=== PATIENT | female | born 1940 | race Caucasian/White ===

== ENCOUNTER 2019-12-03 22:02 | Inpatient (IN) ==
[2019-12-03] MEDS ORDERED: DILAUDID IV ONE (22:39)
[2019-12-03] MEDS ORDERED: ZOFRAN IV ONE (22:39)
[2019-12-03 23:05] LABS: ALBUMIN 4.2 g/dL (3.5-5.0); CALCIUM 9.2 mg/dL (8.8-10.2); CREATININE 1.2 mg/dL (0.5-0.9); TOTAL BILIRUBIN 0.6 mg/dL (0.20-1.00); TOTAL PROTEIN 7.3 g/dL (6.3-8.3)
[2019-12-03 23:10] LABS: MAGNESIUM 1.7 mg/dL (1.5-2.7)
[2019-12-03 23:25] LABS: BASO# 0.09 X1000 (0.0-0.2); BASO% 0.8 % (0.0-0.8); EOS# 0.09 X1000 (0.0-0.7); EOS% 0.8 % (0.0-10.0); HEMATOCRIT 38.8 % (37.0-47.0); HEMOGLOBIN 12.4 g/dL (12.0-16.0); IMM GRAN# 0.04 X1000 (0.0-0.04); IMM GRAN% 0.3 % (0.0-0.5); LYMPH% 5.9 % (20.5-51.1); MCH 27.1 PG (27-31); MCV 84.9 FL (81-99); MONO# 1.04 X1000 (0.11-0.59); MONO% 8.8 % (1.7-9.3); MPV 10.2 FL (7.4-10.4); NEUT# 9.92 X1000 (1.4-6.5); NEUT% 83.4 % (42.2-75.2); PLT 315 X1000 (130-400); RBC 4.57 XMIL (4.2-5.4); RDW 16.4 % (11.5-14.5); WBC 11.88 X1000 (4.8-10.8)
--- NOTE | 2019-12-04 00:34 | EKG Report ---
Test Performed on : 12/03/2019 10:38:43 PM Test Reason : CP Blood Pressure : / mmHG Vent. Rate : 100 BPM Atrial Rate : 100 BPM P-R Int : 172 ms QRS Dur : 096 ms QT Int : 334 ms P-R-T Axes : 057 -32 057 degrees QTc Int : 430 ms Normal sinus rhythm. Possible Left atrial enlargement Left axis deviation Incomplete right bundle branch block Left ventricular hypertrophy Cannot rule out Septal infarct (cited on or before 18-JUN-2019) Abnormal ECG When compared with ECG of 18-JUN-2019 09:30, No significant change was found Unconfirmed Result
[2019-12-04] MEDS ORDERED: DILAUDID IV ONE (01:53)
[2019-12-04] MEDS ORDERED: ROCEPHIN 1 GM in NS 50 ML IV ONE (01:53)
[2019-12-04] MEDS ORDERED: PHENERGAN IM ONE (03:22)
[2019-12-04] MEDS ORDERED: TORADOL IV ONE (03:23)
[2019-12-04] MEDS ORDERED: ZOFRAN IV PRN ×2 (06:43→07:29)
[2019-12-04] MEDS ORDERED: DILAUDID IM PRN (06:43)
[2019-12-04] MEDS ORDERED: TYLENOL PO PRN ×2 (06:43→07:29)
--- NOTE | 2019-12-04 07:42 | Diag Imaging Result Doc PS360 ---
EXAM: CT THORAX/ABD/PELVIS W/O CON - 12/03/2019 HISTORY: PAIN LEFT CHEST ABD SUPRAPUBIC, HEPATOCELLULAR CA TECHNIQUE: CT thorax and abdomen/pelvis without contrast. No contrast administered per request of the referring provider. COMPARISON: 06/18/2019 CT abdomen/pelvis with intravenous contrast FINDINGS: CT thorax: There are COPD changes. There are right lower lobe calcified granulomas and calcified right hilar and mediastinal lymph nodes from old granulomatous disease. There is ill-defined atelectasis or infiltrates at the bilateral lower lobes and inferior left lingula. There is possible tiny left pleural effusion. There is no evidence of pneumothorax. There are no substantially enlarged noncalcified mediastinal lymph nodes identified. CT abdomen/pelvis: There is some limitation of detail without administered contrast. The liver has lobulated contours which can be seen with chronic hepatocellular disease/cirrhosis. The low-density lesion in the right lobe of the liver which was seen on the prior exam is difficult to evaluate due to the lack of intravenous contrast on this exam. There is a 2.5 x 2.3 cm calcified lesion at the right lobe of the liver which has decreased in size. There are smaller calcified lesions near the larger lesion, which measure 1.3 cm and 1 cm, respectively. There are splenic granulomas from old granulosis disease. There is a new 3.7 cm mass at the inferior margin of the spleen which may arise in the peritoneum adjacent to the spleen and abutting or invading the spleen. There has been development of multiple peritoneal masses at the anterior lower abdomen and pelvis. The largest of these measurements 6 x 7.3 cm. The second largest measures 5.6 x 7.3 cm. These are compatible with metastases. There is also a new mass at the left posterior pelvis which measures 6.6 x 3.5 cm and may be peritoneal or retroperitoneal in location. There is small amount of ascites. There are no acute abnormalities of the adrenal glands, pancreas, or kidneys identified. The distal aorta is mildly ectatic at 2.5 cm. There are atherosclerotic calcifications noted. There are lumbar spine degenerative changes noted. There is no evidence of bowel obstruction. There is colonic diverticulosis which is most extensive at the sigmoid. There is no evidence of diverticulitis. There is no free air or abscess identified. IMPRESSION: CT thorax: Hazy atelectasis or infiltrates at lung bases. Possible tiny left pleural effusion. No other discrete metastatic disease in the thorax. CT abdomen/pelvis: Development of multiple masses in lower abdomen and pelvis, most of which are peritoneal in location. These are consistent with metastases. Small amount ascites. No bowel obstruction. The self contained behavior unit teacher radiologist provided preliminary results at 12:53 AM on 12/04/2019. This exam was performed using automated exposure control, adjustment of mA or kV according to patient size, and/or use of iterative reconstruction technique. Electronically signed by Jean CarlosYoutuoabel 12/04/2019 7:40 AM
[2019-12-04] MEDS: ZITHROMAX PO SCH (09:15)
[2019-12-04] MEDS: MORPHINE IR PO PRN ×2 (12:47→21:59)
--- NOTE | 2019-12-04 13:36 | HISTORY AND PHYSICAL ---
CHIEF COMPLAINT: Abdominal pain. HISTORY OF PRESENT ILLNESS: This is a 79-year-old female with a history of metastatic hepatocellular cancer. She presented to the emergency room complaining of pain that started under her left breast, went down through her left ribs and to her left lower quadrant suprapubic area. She rated this as a 10/10 pain at its worst. She did get relief with Dilaudid while in the emergency room. Ms. Alvarez is known to have hepatocellular cancer. She is followed by Dr. Lazar locally and at [facility]. She was evaluated at [facility], underwent a biopsy and had a repeat CT scan. I did discuss the patient with Dr. Lazar, and he stated that he met with the patient and her family in his office yesterday. He discussed CT scan from [facility], which revealed new metastatic lesions involving her spleen, as well as lower abdomen and pelvis areas. PAST MEDICAL HISTORY: 1. Metastatic hepatocellular cancer. 2. Diabetes mellitus. 3. Hypertension. PAST SURGICAL HISTORY: 1. Cholecystectomy. 2. Hysterectomy. 3. Tonsillectomy. 4. Liver ablation. SOCIAL HISTORY: She denies alcohol, tobacco, or illicit drug use. She is , lives with her . ALLERGIES: No known drug allergies. HOME MEDICATIONS: A list will be obtained by the nursing staff. We will review and restart as appropriate. REVIEW OF SYSTEMS: Discussed with the patient with pertinent positives stated in the HPI. She denied any syncope, dizziness, any chest pain or palpitations, any black or bloody vomitus or stools, any hematuria, dysuria, frequency, urgency. PHYSICAL EXAMINATION: GENERAL: This is a 79-year-old female, who is sitting on the side of the bed on the medical- surgical floor in no distress. VITAL SIGNS: Blood pressure is 168/65 with a heart rate of 81, respirations are 18, temperature is 97.8 degrees oral with O2 saturations 95%. HEENT: Pupils are equal, round, react to light. EOMS are intact. Sclerae are anicteric. Head is normocephalic, atraumatic. Mucous membranes are moist. NECK: Supple. Trachea midline. No JVD. CARDIOVASCULAR: Regular rate and rhythm. S1 and S2 are appreciated. She has no lower extremity edema. She denies any calf tenderness. Peripheral pulses palpable x4 extremities. PULMONARY: Breath sounds are clear with no increased work of breathing noted. Chest rises and falls symmetric with respiration. Chest wall is nontender to palpation. GASTROINTESTINAL: Abdomen is soft, nontender, nondistended with bowel sounds in all 4 quadrants. GENITOURINARY: No CVA or suprapubic tenderness. NEUROLOGIC: She is alert and oriented. LABS: WBC is 11.8 with hemoglobin 12.4, hematocrit 38.8, platelets of 315. Sodium 133, potassium 4, BUN 27, creatinine 1.2 with a glucose of 286. AST is 98, alkaline phosphatase 112. Blood cultures are pending. X-RAYS: CT of the abdomen and pelvis revealed hazy atelectasis or infiltrates at the lung bases. No discrete metastatic disease in the thorax. CT of the abdomen and pelvis revealed development of multiple masses in the lower abdomen and pelvis, most of which are peritoneal in location. These are consistent with metastasis. Small amount of ascites. No bowel obstruction. ASSESSMENT: 1. Metastatic hepatocellular cancer. 2. Abdominal pain, secondary to metastatic disease. 3. Nausea and vomiting. 4. Bilateral lower lobe pneumonia. 5. Diabetes mellitus. PLAN: 1. The patient has been admitted to the medical-surgical floor and placed on telemetry which will continue. 2. Diet as tolerated. 3. Oxygen as needed. 4. Continue azithromycin and Rocephin for antibiotic coverage and further antibiotics will be culture driven. 5. Incentive spirometer q. 4 hours. 6. We will identify her home medications and continue as appropriate. 7. We will start morphine IR 15 mg q. 6 hours p.r.n. pain. Will evaluate its effectiveness. 8. Start MiraLAX 17 g p.o. daily, along with her Senna [address] tabs [address] 9[address] her on pattern blood glucose with sliding scale insulin. 10. Chronic kidney disease. We will monitor labs and renal dose medications. Plan was discussed with Dr. Jacques. Further treatments pending hospital course. Dictated by MALOU Marques for Eber Jacques MD cc: MALOU Marques MD
[2019-12-04] MEDS: PERICOLACE PO SCH (21:42)
--- NOTE | 2019-12-04 22:03 | HISTORY AND PHYSICAL ---
ADDENDUM: Patient seen and examined by myself. Full note dictated and discussed with nurse practitioner. Patient presented to the hospital with abdominal pain and pain in her left breast and the lower left ribs as well as suprapubic abdomen. Does have a history of cancer, diabetes and hypertension. Notes that at times her pain is 10/10. We are going to admit her to the hospital with pain control. We will continue to follow her blood pressures. She was on a Nipride drip last night. Has improved off of that, although blood pressures have just recently gone back to 180. It also appears though she may have peritoneal masses from her previous cancer. We will continued to follow. cc: Eber Jacques MD
[2019-12-05] MEDS: ROCEPHIN 1 GM in NS 50 ML IV SCH (02:53)
[2019-12-05 04:36] LABS: HEMATOCRIT 38.4 % (37.0-47.0); HEMOGLOBIN 11.7 g/dL (12.0-16.0); MCH 26.5 PG (27-31); MCHC 30.5 g/dL (33-37); MCV 87.1 FL (81-99); MPV 10.3 FL (7.4-10.4); RBC 4.41 XMIL (4.2-5.4); RDW 16.5 % (11.5-14.5); WBC 8.58 X1000 (4.8-10.8)
[2019-12-05 04:45] LABS: ALBUMIN 3.7 g/dL (3.5-5.0); CREATININE 1.1 mg/dL (0.5-0.9); POTASSIUM 4.7 mmol/L (3.5-5.1); TOTAL BILIRUBIN 0.4 mg/dL (0.20-1.00); TOTAL PROTEIN 7.2 g/dL (6.3-8.3)
[2019-12-05] MEDS: PRILOSEC PO SCH (06:16)
[2019-12-05] MEDS: SYNTHROID PO SCH (06:16)
[2019-12-05] MEDS: MORPHINE IR PO PRN (06:16)
[2019-12-05] MEDS: ZANAFLEX PO SCH (09:27)
[2019-12-05] MEDS: ZITHROMAX PO SCH (09:27)
[2019-12-05] MEDS: CALTRATE 600 + D PO SCH (09:27)
[2019-12-05] MEDS: VITAMIN D PO SCH (09:27)
[2019-12-05] MEDS: ESTRACE PO SCH (09:28)
[2019-12-05] MEDS: MAG-OX PO SCH (09:28)
[2019-12-05] MEDS: VITAMIN B-12 SL SCH (09:28)
[2019-12-05] MEDS: MIRALAX PO SCH (09:28)
[2019-12-05] MEDS: PERICOLACE PO SCH ×2 (09:28→23:11)
[2019-12-05] MEDS: COZAAR PO SCH (09:28)
[2019-12-05] MEDS: MORPHINE IR PO SCH ×2 (12:30→18:31)
--- NOTE | 2019-12-05 23:25 | PROGRESS NOTE ---
DATE: 12/05/2019 SUBJECTIVE: The patient notes she is still having left upper quadrant pain. Medications help but do not completely alleviate pain. PHYSICAL EXAMINATION: Temperature 97.8, pulse 89, respiratory rate 18, BP 172/84.General: The patient is pleasant, currently in no respiratory distress. HEENT: Normocephalic. Neck: Supple. Cardiovascular: Regular rate, chest clear, nonlabored, no crackles. Abdomen: Soft, diffusely but minimally tender. Extremities: Moves all extremities. ASSESSMENT: 1. Metastatic hepatocellular cancer. 2. Abdominal pain secondary to metastatic disease. 3. Bilateral lower lobe pneumonia. 4. Diabetes. 5. Leukocytosis. 6. Hyponatremia. PLAN: Overall, the patient is stable. She is in no respiratory distress. White count is improved. Sodium is back to normal. She is having pain. We started her on morphine. Will follow today, if necessary will increase her pain medications. Unfortunately, the pain seems to be more due to her metastatic disease than to her current pneumonia. cc: Eber Jacques MD
[2019-12-06] MEDS: ROCEPHIN 1 GM in NS 50 ML IV SCH (00:19)
[2019-12-06] MEDS: MORPHINE IR PO SCH ×4 (00:19→17:18)
[2019-12-06] MEDS: SYNTHROID PO SCH (06:41)
[2019-12-06] MEDS: PRILOSEC PO SCH (06:41)
[2019-12-06] MEDS ORDERED: PHENERGAN PO PRN (07:50)
[2019-12-06] MEDS ORDERED: MOVANTIK PO ONE (09:00)
[2019-12-06] MEDS: CALTRATE 600 + D PO SCH (09:57)
[2019-12-06] MEDS: ZANAFLEX PO SCH (09:57)
[2019-12-06] MEDS: ZITHROMAX PO SCH (09:57)
[2019-12-06] MEDS: MIRALAX PO SCH (09:58)
[2019-12-06] MEDS: MAG-OX PO SCH (09:58)
[2019-12-06] MEDS: PERICOLACE PO SCH ×2 (09:58→22:00)
[2019-12-06] MEDS: VITAMIN B-12 SL SCH (09:58)
[2019-12-06] MEDS: VITAMIN D PO SCH (09:58)
[2019-12-06] MEDS: ESTRACE PO SCH (09:59)
[2019-12-06] MEDS: COZAAR PO SCH (10:00)
--- NOTE | 2019-12-06 12:33 | PROGRESS NOTE ---
DATE: 12/06/2019 SUBJECTIVE: Patient notes she has been constipated, still hurting. She is nauseated frequently. PHYSICAL EXAM: Vital signs: Temperature 98, pulse 103, respiratory 18, BP 119/65. Currently she is on 2 L oxygen to sat 94%, 95% on room air. HEENT: Normocephalic. Neck: Supple. Cardiovascular: Mild tachycardia. Chest: Clear, nonlabored. Abdomen: Soft, nondistended. ASSESSMENT: 1. Nausea. We will add Phenergan. 2. Constipation. We will add Movantik. 3. Hypoxia. We will continue to follow. 4. Acute pain secondary to metastases. 5. Metastatic hepatocellular cancer. 6. Diabetes. 7. Hypertension, stable. PLAN: Expect patient to be in the hospital for couple of days given her oxygen desaturations. cc: Eber Jacques MD
[2019-12-07] MEDS: ROCEPHIN 1 GM in NS 50 ML IV SCH (00:32)
[2019-12-07] MEDS: MORPHINE IR PO SCH ×2 (05:16→05:18)
[2019-12-07] MEDS: PRILOSEC PO SCH (05:19)
[2019-12-07] MEDS: SYNTHROID PO SCH (05:19)
[2019-12-07 07:28] LABS: URINE SOURCE CLEAN CATCH
[2019-12-07 08:26] LABS: BILIRUBIN URINE NEGATIVE (NEGATIVE); BLOOD URINE TRACE (NEGATIVE); COLOR YELLOW; GLUCOSE URINE NEGATIVE (NEGATIVE); KETONE URINE NEGATIVE (NEGATIVE); LEUKOCYTES URINE NEGATIVE (NEGATIVE); NITRITE URINE NEGATIVE (NEGATIVE); PROTEIN URINE 50 mg/dL (NEGATIVE); SP GRAVITY URINE 1.022; TURBIDITY URINE TURBID (CLEAR); UROBILINOGEN URINE NORMAL (NORMAL)
[2019-12-07 08:41] LABS: UR EPITHELIAL CELLS >10 /HPF (<10); URINE BACTERIA NEGATIVE /HPF; URINE RBC <10 /HPF (<10); URINE WBC <10 /HPF (<10)
[2019-12-07 08:45] LABS: URINE CASTS GRANULAR PRESENT; URINE CRYSTALS NONE SEEN; URINE SMALL ROUND CELLS NONE SEEN; URINE YEAST NONE SEEN
[2019-12-07] MEDS ORDERED: MORPHINE IR PO PRN ×2 (09:49→15:30)
[2019-12-07] MEDS: ZITHROMAX PO SCH (10:06)
[2019-12-07] MEDS: VITAMIN D PO SCH (10:07)
[2019-12-07] MEDS: COZAAR PO SCH (10:11)
[2019-12-07] MEDS: CALTRATE 600 + D PO SCH (10:11)
[2019-12-07] MEDS: ESTRACE PO SCH (10:12)
[2019-12-07] MEDS: ZANAFLEX PO SCH (10:13)
[2019-12-07] MEDS: MAG-OX PO SCH (10:13)
[2019-12-07] MEDS: PERICOLACE PO SCH ×2 (10:14→22:11)
[2019-12-07] MEDS: MIRALAX PO SCH (10:14)
[2019-12-07] MEDS: VITAMIN B-12 SL SCH (10:15)
--- NOTE | 2019-12-07 11:59 | Diag Imaging Result Doc PS360 ---
EXAM: CHEST-2 VIEWS 12/07/2019 HISTORY: hypoxia TECHNIQUE: Two views the chest COMMENT: The inspiration is suboptimal. There is a small amount of pleural fluid on both sides which was not the case on 06/18/2019. There is bibasilar atelectasis versus mild bronchopneumonia. IMPRESSION: Bilateral pleural effusions and basilar atelectasis. Electronically signed by Alexandre Bergeron 12/07/2019 11:57 AM
--- NOTE | 2019-12-07 11:59 | Diag Imaging Result Doc PS360 ---
EXAM: KUB ABDOMEN 12/07/2019 HISTORY: constipation TECHNIQUE: KUB COMMENT: There is stool throughout much of the colon. There is no evidence of small bowel dilatation gastric distention organomegaly or mass. IMPRESSION: Severe constipation. Electronically signed by Alexandre Bergeron 12/07/2019 11:56 AM
[2019-12-07] MEDS ORDERED: NS 1,000 ML IV ONE ×3 (14:53→16:14)
[2019-12-07] MEDS ORDERED: ROCEPHIN 1 GM in NS 50 ML IV SCH (15:30)
[2019-12-07] MEDS ORDERED: LEVOPHED 8 MG in D5 1/2 NS 250 ML IV PRN (16:34)
[2019-12-07] MEDS ORDERED: NON-FORMULARY MED PR ONE (19:00)
--- NOTE | 2019-12-07 20:45 | PROGRESS NOTE ---
DATE: 12/07/2019 SUBJECTIVE: Patient notes she is still having issues with constipation. She was having some difficulty urinating. We did place Thomas catheter. Still having diffuse abdominal pain. PHYSICAL: Temperature 97, pulse 104, respiratory 18, BP 120/60, saturation 92 on 3 L.HEENT: Normocephalic. Neck: Supple. CV: Regular rate. Chest: Clear. Abdomen: Soft, nondistended. Extremities: Moves all extremities. ASSESSMENT: 1. Nausea, vomiting. 2. Abdominal pain. 3. Metastatic hepatocellular cancer. 4. Diabetes. 5. Hypertension. 6. Hypoxia. PLAN: We are going to place Thomas catheter as she is having some urinary retention issues. She does have bilateral pneumonia. Will continue antibiotics, continue oxygen and will transfer to [facility] for hematology's input regarding her metastatic cancer. ADDENDUM: After Thomas was placed, patient's blood pressures dropped in the 70s and 80s systolic [*] bolus her and it improved. Will continue to follow. cc: Eber Jacques MD
[2019-12-08] MEDS: NS 1,000 ML IV SCH ×5 (01:28→18:10)
[2019-12-08] MEDS: SYNTHROID PO SCH (06:09)
[2019-12-08] MEDS: PRILOSEC PO SCH (06:09)
[2019-12-08] MEDS: MIRALAX PO SCH (08:02)
[2019-12-08] MEDS: MAG-OX PO SCH (08:02)
[2019-12-08] MEDS: ZANAFLEX PO SCH (08:02)
[2019-12-08] MEDS: CALTRATE 600 + D PO SCH (08:03)
[2019-12-08] MEDS: VITAMIN D PO SCH (08:03)
[2019-12-08] MEDS: PERICOLACE PO SCH ×2 (08:04→20:33)
[2019-12-08] MEDS: VITAMIN B-12 SL SCH (08:04)
[2019-12-08] MEDS: COZAAR PO SCH (08:04)
[2019-12-08] MEDS ORDERED: NS 1,000 ML IV ONE (09:45)
[2019-12-08] MEDS: ZITHROMAX PO SCH (10:21)
[2019-12-08] MEDS: ESTRACE PO SCH (10:21)
[2019-12-08] MEDS ORDERED: MORPHINE IR PO PRN (10:34)
[2019-12-08] MEDS ORDERED: TYLENOL PO PRN (10:37)
[2019-12-08] MEDS ORDERED: ZOFRAN IV PRN (10:40)
[2019-12-08] MEDS: ROCEPHIN 1 GM in NS 50 ML IV SCH (11:53)
[2019-12-08] MEDS: MORPHINE IR PO PRN ×3 (13:40→23:24)
--- NOTE | 2019-12-08 14:47 | PROGRESS NOTE ---
DATE: 12/08/2019 SUBJECTIVE: It looks like she had a couple bowel movements liquid brown, she does not want to eat because she does not want to vomit, she is complaining of abdominal pain. She is awake, she is alert, she is oriented. No family members at the bedside. OBJECTIVE: Vital Signs: Temperature 98.3, pulse 83, respiratory rate 13, blood pressure 125/50, oxygen saturation 93 on nasal cannula. HEENT: Head normocephalic, no trauma. PERRLA. Neck: Supple. No JVD. No masses. Central trachea. Chest: Clear to auscultation. No wheezing, no rales. Abdomen: Soft, is slightly distended, painful to palpation. Positive bowel sounds but decreased. Extremities: No edema, no clubbing, no cyanosis. Neurologic: The patient is awake, she is alert. She is answering my questions. She is oriented. LABORATORY: No lab work done today. ASSESSMENT AND PLAN: 1. Metastatic hepatocellular cancer with severe abdominal pain. Will continue with pain management. Palliative Care is on board as well as Hematology/Oncology Department, Dr. Lazar, I will follow their recommendations. 2. Nausea and vomiting as per #1, continue with same management. She is getting some fluids. 3. Bilateral lower lobe pneumonia. This patient has been placed on ceftriaxone and azithromycin, she seems to be stable. She is not complaining of shortness of breath. 4. Chronic kidney disease, aware. 5. Hypoxemia probably due to pneumonia. 6. Diabetes. I will put this patient on pattern blood sugar and sliding scale insulin. I am not quite sure about the prognosis of this patient, I will wait for Dr. Lazar's note and recommendations, Palliative Care is on board though, will continue with same management for now. cc: Ralph Lucero MD
[2019-12-08] MEDS: PHENERGAN PO PRN ×2 (16:09→23:24)
[2019-12-08] MEDS: HUMULIN R SUBQ SCH ×2 (16:10→20:29)
--- NOTE | 2019-12-08 17:51 | HEMO/ONC CONSULTATION ---
DATE: 12/08/2019 REASON FOR CONSULTATION: She is a known patient of ours for the treatment of metastatic hepatocellular cancer. HISTORY OF PRESENT ILLNESS: This is a 79-year-old female with a history of metastatic hepatocellular cancer. She came to the ER on 12/05/2019 with complaints of pain that started under her left breast, went down through her ribs, into her left lower quadrant/suprapubic area. She rates this is a 10/10 pain at its worse. She was given Dilaudid in the emergency room which did provide her some relief. The patient is followed locally by our clinic. She is also followed by the [facility]. She recently underwent a biopsy and a repeat PET scan. The patient most recent CT scan reveals new metastatic lesions involving her spleen, as well as lower abdomen and pelvis area. At this time, we are trying to obtain Nexavar for the patient. The patient is interested in palliative care. We are going to proceed with that as soon as possible. PAST MEDICAL HISTORY: 1. Metastatic hepatocellular cancer. 2. Diabetes mellitus. 3. Hypertension. PAST SURGICAL HISTORY: 1. Cholecystectomy. 2. Hysterectomy. 3. Tonsillectomy. 4. Liver ablation. SOCIAL HISTORY: The patient denies alcohol, tobacco, or illicit drug use. ALLERGIES: No known drug allergies. HOME MEDICATIONS: Calcium plus D3, vitamin D3, Welchol, vitamin B12, dicyclomine HCL, estradiol, glimepiride, glucosamine, levothyroxine, losartan, magnesium oxide, mycophenolate mofetil, omeprazole, plant stanol jasmina, potassium chloride, prednisolone, sennoside plus docusate sodium, and Zanaflex. VITAL SIGNS: Temperature 99.1 degrees, pulse rate 93, respiratory rate 15, blood pressure 136/69, O2 saturation 93% on nasal cannula at 4 L. She is in 7/10 abdominal pain. PHYSICAL EXAMINATION: General: This is an elderly female who does not appear well. HEENT: Sclera is anicteric. Oral mucosa normal. PERRLA. Cardiovascular: Normal S1, S2. Heart rate and rhythm regular. Respiratory: Lung sounds clear to auscultation. Abdomen: Soft, slightly distended, painful to palpation. Hypoactive bowel sounds. Extremities: No lower extremity edema noted. Neurological: Alert and oriented x3. No focal motor deficits noted. LABORATORY: No labs done today. Abdomen and pelvis CT from 12/03/2019 showed development of multiple masses in lower abdomen and pelvis, most of which are peritoneal in location. These are consistent with metastasis. Small amount of ascites. No bowel obstruction. ASSESSMENT AND PLAN: 1. Metastatic hepatocellular cancer. Right now treat the patient symptomatically. We are obtaining Nexavar for the patient as she has voiced interest in pursuing palliative chemotherapy at this time. 2. Anorexia, nausea, and vomiting. The patient is stating that she does not want to eat because she does not want to throw up. The patient needs to have nausea medicine around the clock. Please encourage her to eat and provide her with protein shakes or LiquaCel, whichever she prefers. 3. Abdominal pain secondary to metastatic disease. Pain management is very important for this patient at this time. Continue to give her morphine around the clock as necessary. 4. Bilateral lower lobe pneumonia. Continue medical management. Dictated by MALOU Santiago for Evangelista Lazar MD Patient seen and examined. Metastatic hepatoma with multiple omental masses. Increase MSIR frequency for pain control. Patient wants palliative chemotherapy. Will continue discussion with her. Continue current medical management. Evangelista Lazar MD cc: MD NIKHIL Pop
[2019-12-09] MEDS: NS 1,000 ML IV SCH ×5 (00:31→23:01)
[2019-12-09] MEDS: MORPHINE IR PO PRN ×4 (03:21→13:29)
[2019-12-09 06:06] LABS: BASO# 0.06 X1000 (0.0-0.2); BASO% 0.5 % (0.0-0.8); EOS# 0.15 X1000 (0.0-0.7); EOS% 1.2 % (0.0-10.0); HEMATOCRIT 33.6 % (37.0-47.0); HEMOGLOBIN 10.4 g/dL (12.0-16.0); IMM GRAN# 0.03 X1000 (0.0-0.04); IMM GRAN% 0.2 % (0.0-0.5); LYMPH# 0.65 X1000 (1.2-3.4); LYMPH% 5.4 % (20.5-51.1); MCH 26.8 PG (27-31); MCV 86.6 FL (81-99); MONO# 1.19 X1000 (0.11-0.59); MONO% 9.8 % (1.7-9.3); MPV 10.6 FL (7.4-10.4); NEUT# 10.06 X1000 (1.4-6.5); NEUT% 82.9 % (42.2-75.2); PLT 284 X1000 (130-400); RBC 3.88 XMIL (4.2-5.4); RDW 16.4 % (11.5-14.5); WBC 12.14 X1000 (4.8-10.8)
[2019-12-09] MEDS: SYNTHROID PO SCH (06:22)
[2019-12-09] MEDS: PRILOSEC PO SCH (06:22)
[2019-12-09] MEDS: HUMULIN R SUBQ SCH ×4 (06:28→20:15)
[2019-12-09 08:42] LABS: AGAP 13; ALB/GLOB RATIO 0.8; ALBUMIN 2.6 g/dL (3.5-5.0); ALKALINE PHOSPHATASE 113 U/L (32-104); BUN 19 mg/dL (8-22); CALCIUM 7.9 mg/dL (8.8-10.2); CHLORIDE 105 mmol/L (98-107); COSMO 279; CREATININE 0.7 mg/dL (0.5-0.9); ESTIMATED GFR > 60; GLUCOSE 81 mg/dL (70-104); GOT 139 U/L (10-30); GPT 30 U/L (10-36); SODIUM 139 mmol/L (136-145); TCO2 21 mmol/L (25-35); TOTAL BILIRUBIN 0.41 mg/dL (0.20-1.00)
[2019-12-09] MEDS: ZITHROMAX PO SCH (08:44)
[2019-12-09] MEDS: PERICOLACE PO SCH ×2 (08:45→20:16)
--- NOTE | 2019-12-09 08:56 | PROGRESS NOTE ---
DATE: 12/09/2019 SUBJECTIVE: The patient is sleepy, but arousable. She is answering my questions. She is complaining of generalized pain, especially at the level of the abdomen. She has been having some liquid bowel movements, especially yesterday. She has been refusing to eat or drink too much because she is afraid to vomit. She is tolerating a little bit of fluids. Her vital signs are stable. She has been placed on a Ventimask during the night. We will continue with that for now. I am not quite sure what the family wants. I have not seen them. Palliative Care is on board, and they are trying also to talk to the family. I do not think this patient needs to be in the ICU. She can be transferred to the floor, and Dr. Lazar already saw the patient and they have recommended to treat this patient symptomatically and palliative chemotherapy. OBJECTIVE: Vital Signs: Temperature 98.3, pulse 101, respiratory rate 15, blood pressure 128/74, oxygen saturation 95% on a Venturi mask. HEENT: Head normocephalic, no trauma. PERRLA. Neck: Supple. No JVD. No masses. Central trachea. Chest: Clear to auscultation. No wheezing. No rales. Abdomen: Soft, slightly distended, painful to palpation. Positive bowel sounds, but decreased. Extremities: No edema, no clubbing, no cyanosis. Neurological: The patient is sleepy, but arousable. She is answering my questions. She is oriented. LABORATORY: WBC 12.1, hemoglobin 10.4, hematocrit 33.6, platelets 284,000. Pending CMP. ASSESSMENT AND PLAN: 1. Metastatic hepatocellular cancer with severe abdominal pain. Continue with pain management, Palliative Care on board, as well as Hematology/Oncology Department. It looks like she is going to get palliative chemotherapy. 2. Nausea and vomiting, as per number 1. Continue same management. She is refusing to eat because she is afraid to vomit. 3. Bilateral lower lobe pneumonia. The patient has been placed on ceftriaxone and azithromycin. She is not complaining of shortness of breath, but the oxygen saturation was low during the night and she was placed on a Ventimask. 4. Chronic kidney disease, aware. 5. Diabetes. Continue pattern of blood sugar and sliding scale insulin. 6. Overall, she has poor prognosis due to her metastatic cancer. She will palliative chemotherapy, Palliative Care Team is on board. I will wait for more recommendations. I think this patient can be transferred to the floor. cc: Ralph Lucero MD
[2019-12-09] MEDS ORDERED: MIRALAX PO SCH (09:00)
[2019-12-09] MEDS ORDERED: COZAAR PO SCH (09:00)
[2019-12-09] MEDS ORDERED: MAG-OX PO SCH (09:00)
[2019-12-09] MEDS ORDERED: CALTRATE 600 + D PO SCH (09:00)
[2019-12-09] MEDS ORDERED: ESTRACE PO SCH (09:00)
[2019-12-09] MEDS ORDERED: VITAMIN B-12 SL SCH (09:00)
[2019-12-09] MEDS ORDERED: VITAMIN D PO SCH (09:00)
[2019-12-09] MEDS: ROCEPHIN 1 GM in NS 50 ML IV SCH (11:15)
[2019-12-09] MEDS: MORPHINE IV PRN ×2 (16:58→22:29)
--- NOTE | 2019-12-09 17:52 | HEMO/ONC PROGRESS NOTE ---
DATE: 12/09/2019 SUBJECTIVE: The patient was able to open her eyes and answer questions for me this morning. She appeared somewhat comfortable., although when asked about pain, she said that her stomach continues to hurt. The patient denies any significant complaints. OBJECTIVE: Vital Signs: Temperature 98.5 pulse rate 107, respiratory rate 11, blood pressure 147/72, O2 saturation 90% on 40% Venturi mask. General: This morning, the patient appeared comfortable. Nurses tell me now that she is moaning in pain and is about an F3 on the pain scale. HEENT: Sclerae anicteric. PERRLA. Oral mucosa is normal. Cardiovascular: Normal S1, S2. Heart rate and rhythm tachycardic. Respiratory: Lungs are clear to auscultation. Normal respiratory effort. Abdomen: Painful to palpation, slightly distended. Hypoactive bowel sounds. Extremities: No edema noted. Neurological: She was alert and able to answer questions this morning. LABORATORY: WBCs 12.14, hemoglobin 10.4, hematocrit 33.6, platelet count 284. AST 139, alkaline phosphatase 113. ASSESSMENT/PLAN: 1. Metastatic hepatoma with multiple omental masses. Dr. Lazar has consulted hospice today. She has continued to be in a [id number] amount of pain all day. Nursing staff has called to state that the patient was moaning in pain but too sedated to swallow oral pain medication. They have requested orders given to change morphine to 5 mg IV every 2 hours p.r.n. We will continue to monitor at this time. 2. Anorexia, nausea and vomiting. The patient continues to eat very little to keep from throwing up. The patient is receiving nausea medicines. Continue to monitor. 3. Abdominal pain secondary to metastatic disease. 4. Pain management is very important for this patient at this time. Continue to give her morphine around the clock. 5. Bilateral lobe pneumonia. Continue medical management. Dictated by MALOU Santiago for Evangelista Lazar MD Patient's performance status continues to quickly decline. Daughter at bedside. Continue pain control. Discussed hospice and comfort measures and daughter agrees. She will discuss with family. Patient is confused. Discussed with palliative care team. Evangelista Lazar MD cc: Evangelista Lazar MD [facility]
--- NOTE | 2019-12-09 22:11 | Diag Imaging Result Doc PS360 ---
EXAM: CHEST-PORTABLE INDICATION: Increased WOB/Crackles TECHNIQUE: One view COMPARISON: 12/07/2019 FINDINGS: There has been development of interstitial and airspace infiltrate bilaterally with a basilar predominance indicating edema. Small effusions are approximately stable. Bibasilar atelectasis is again noted. No definite pneumothorax is appreciated. Cardiac silhouette is stable. IMPRESSION: Interval development of interstitial and airspace infiltrates with a basilar predominance indicating coronary edema. Electronically signed by Maged Garcia 12/09/2019 10:09 PM
[2019-12-10] MEDS ORDERED: LASIX IV ONE (00:21)
[2019-12-10] MEDS: MORPHINE IV PRN ×9 (00:38→19:46)
[2019-12-10 05:26] LABS: ALLEN TEST YES; BLOOD TYPE ARTERIAL; HCO3-(ACT) 22.6 mmoll (20.0-26.0); METHB 0.9 % (0.0-1.5); O2(CT) 14.8 mL/dL (15.0-23.0); O2HB 97.2 % (95.0-99.0); PO2(98.6) 231 mmHg (60-100); SAMPLE BLOOD; SAO2 99.6 % (95.0-100.0); THB 10.4 g/dL (11.5-17.4); pH(98.6) 7.24 (7.35-7.45)
[2019-12-10 05:29] LABS: PCO2(98.6) 58 mmHg (35-45)
[2019-12-10 05:30] LABS: MODALITY BI PAP
[2019-12-10] MEDS: HUMULIN R SUBQ SCH (05:59)
[2019-12-10] MEDS: PRILOSEC PO SCH (05:59)
[2019-12-10] MEDS: SYNTHROID PO SCH (05:59)
[2019-12-10] MEDS ORDERED: CLINIMIX E 4.25%-5% SOLUTION 1,000 ML IV SCH (07:30)
[2019-12-10] MEDS ORDERED: ATROPINE 1 % OPHTH SOLN SL PRN (08:37)
[2019-12-10] MEDS ORDERED: ATIVAN IV PRN (08:47)
--- NOTE | 2019-12-10 10:19 | PROGRESS NOTE ---
DATE: 12/10/2019 SUBJECTIVE: This patient seems to be actively dying. She is lethargic. Her daughter is at the bedside. OBJECTIVE: Vital Signs: Temperature 98.4 degrees, pulse 112, respiratory rate 12, blood pressure 121/58, oxygen saturation 88 on a nonrebreathing mask. HEENT: Head normocephalic. No trauma. PERRLA. Neck: Supple. No JVD. No masses. Central trachea. Chest: Coarse breath sounds bilaterally. Abdomen: Soft. Slightly distended. Positive bowel sounds but decreased. Extremities: No edema, no clubbing, no cyanosis. Neurological Examination: The patient is lethargic. Laboratory Data: PH 7.24, pCO2 of 58, and PO2 of 231, bicarbonate 22.6 on the BiPAP machine, 100% FiO2. ASSESSMENT AND PLAN: 1. Metastatic hepatocellular cancer with severe abdominal pain. 2. Nausea and vomiting, per #1. 3. Bilateral lower lobe pneumonia. 4. Chronic kidney disease. 5. Diabetes. 6. Overall, her prognosis is poor. She seems to be actively dying. She has been placed Do Not Resuscitate and she will be on comfort measures only. She will be evaluated by hospice. cc: Ralph Lucero MD
--- NOTE | 2019-12-10 15:53 | HEMO/ONC PROGRESS NOTE ---
DATE: 12/10/2019 SUBJECTIVE: The patient was unresponsive in the ICU bed this morning. She was having agonal respirations. She was considered actively dying per the palliative care nurse. The patient appeared comfortable. OBJECTIVE: Vital Signs: Heart rate 109, respiratory rate 14, blood pressure 128/58, O2 88% on non-rebreather. General: Patient unresponsive. Cardiovascular: Tachycardic. Respiratory: Coarse breath. Agonal respirations. Abdomen: Soft, slightly distended. Extremities: Mild edema noted to the lower extremities. Neurological: The patient is unresponsive this morning. ASSESSMENT AND PLAN: 1. Metastatic hepatoma with multiple omental masses. The patient's status is quickly declining. Palliative care nurse states she is actively dying this morning. Hospice is involved. Family is at bedside keeping the patient comfortable at this time. 2. Pain management is very important for this patient at this time. Continue to give morphine as needed. Dictated by MALOU Santiago for Evangelista Lazar MD cc: Evangelista Lazar MD
[2019-12-11 00:20] VITALS: BP 63/35
--- NOTE | 2019-12-11 21:35 | DISCHARGE SUMMARY ---
ADMISSION DATE: 12/05/2019 DISCHARGE DATE: 12/10/2019 DISCHARGE DIAGNOSES: 1. Metastatic hepatocellular cancer with severe abdominal pain. 2. Multiorgan failure. 3. Nausea and vomiting, per #1. 4. Bilateral lower lobe pneumonia. 5. Chronic kidney disease. 6. Diabetes. 7. The patient demised at 2144 on 12/10/2019. PROCEDURES PERFORMED: 1. Chest, abdominal, chest, abdomen and pelvic CT scan dated 12/03/2019. Impression; CT showed hazy atelectasis or infiltrates at lung bases, possible tiny left pleural effusion. No other discrete metastatic disease in the thorax. 2. CT abdomen and pelvis; development of multiple masses in lower abdomen and pelvis, most of which are peritoneal in location. These are consistent with metastasis, small amount of ascites, no bowel obstruction. 3. Chest x-ray dated 12/07/2019. Impression; bilateral pleural effusion and basilar atelectasis. 4. Abdomen x-ray dated 12/07/2019. Impression; severe constipation. 5. Chest x-ray dated 12/09/2019. Impression; interval development of interstitial and airspace infiltrates with a basilar predominance indicated pulmonary edema. HOSPITAL COURSE: A 79-year-old female with a past medical history of hepatocellular carcinoma. She presented to the emergency department was admitted on 12/05/2019. She was complaining of pain that started under her left breast, went down to her left ribs and to her left lower quadrant suprapubic area. She rated this as a 10/10. She had some relieve with narcotics in the emergency room. She has a history of hepatocellular carcinoma and she follows with Dr. Lazar and apparently at [place]. She was evaluated at [place], underwent a biopsy and had a repeat CT scan and apparently that revealed new metastatic lesions involving multiple areas of her abdomen. She was admitted and placed on telemetry. We tried to start her on a diet, but she was not tolerating that because of nausea and vomiting. We started her on antibiotics due to her pneumonia and MiraLAX, but she started to decline slowly. Chest x-ray showed pneumonia. CT scan showed worsening of her metastatic disease. Hematology/Oncology department on board as well as palliative care team. This patient basically was getting lethargic, and she was actively dying at the end of this hospitalization. The patient had been placed DNR. She started having multiorgan failure and she demised at 2145 on 12/10/2019. Family has been notified. cc: Ralph Lucero MD
== END 2019-12-10 21:45 | disposition expired | DRG 194 ==
LOC: P.EDIPHOLD 22:02 → P.ED 22:02 → P.MEDSURG 22:02 → SUATTDRO 12-05 11:37 → ICU 12-07 18:52
PROVIDERS: ATTEND Internal Medicine